=== PATIENT | female | born 1995 | race Caucasian/White ===

== ENCOUNTER 2020-03-17 06:51 | Outpatient (NON) | payer OTHER, SELFPAY ==
[2020-03-17 18:47] LABS: SARS-CoV-2 RNA PCR Negative
== END 2020-03-17 06:52 ==
DX: Z01.812 Encounter for preprocedural laboratory examination (principal); Z20.822 Contact with and (suspected) exposure to COVID-19
CPT/HCPCS: C9803; U0003; U0005

== ENCOUNTER → 2021-03-15 16:18 | Outpatient (CLI) | payer BC, SELFPAY ==
--- NOTE | ~2021-03-15 | XR_ITS ---
XR chest 2V DATE: 03/15/2021 16:46 INDICATION: Pleuritic chest pain. Covid-positive. TECHNIQUE: 2 views COMPARISON: 12/05/2013 2 view chest FINDINGS: Bilateral hyperinflation. No pulmonary infiltrate or consolidation, pleural effusion or pul monary vascular congestion or pneumothorax is detected. Normal heart size. No hilar or mediastinal en largement. Included skeletal structures are unremarkable. IMPRESSION: Bilateral hyperinflation Reviewed, dictated and finalized at location [facility] IMPRESSION: Bilateral hyperinflation
== END ==
DX: U07.1 COVID-19 (principal); R05.9 Cough, unspecified; R91.8 Other nonspecific abnormal finding of lung field
CPT/HCPCS: 71046

== ENCOUNTER 2021-12-18 09:59 | Emergency (ER) | payer BC, OTHER, SELFPAY ==
[2021-12-18 10:20] VITALS: BP 147/85; PULSE 103; RESP 16; TEMP 36.3; O2SAT 99
[2021-12-18 10:27] VITALS: BP 147/85; PULSE 103; RESP 16; TEMP 36.3; O2SAT 99
--- NOTE | 2021-12-18 10:29 | ED.URI ---
HPI - URI/Sore Throat General Chief Complaint: Upper Respiratory Infection Stated Complaint: sore throat Time Seen by Provider: 12/18/21 10:29 Source: patient, RN notes reviewed and old records reviewed Mode of arrival: ambulatory Limitations: no limitations History of Present Illness HPI Narrative: 26 year old female who presents to [facility] with complaints of sore throat, cough, chest congestion for one week duration. Patient reports no fevers, sinus congestion or drainage or any ear pain. Patient reports that she initially took Benadryl thinking it was allergies which didn't seem to help and she also has taken some DayQuil which didn't seem to help her symptoms either. She reports that she has been COVID vaccinated and has had COVID. Patient denies any body aches did take home COVID test which was negative. MD elicited complaint: sore throat Onset (ago): week(s) (1) Pain scale (0-10): 6 Treatments prior to arrival: other (Benadryl and Dayquil) Related Data Home Medications Medication Instructions Recorded Confirmed norethindrone 1 mg-ethinyl tablet 12/18/21 estradiol 20 mcg (21)-iron 75 mg (7) tablet (03/22 (28)) Allergies Allergy/AdvReac Type Severity Reaction Status Date / Time No Known Allergies Allergy Verified 12/18/21 10:07 Review of Systems Review of Systems: CONSTITUTIONAL: Denies malaise, chills, sweats, or fever. EYES: Denies visual changes, redness, or discharge. ENT: Reports no rhinorrhea, congestion, sinus pain, otalgia positive sore throat. CARDIOVASCULAR: Denies chest pain, palpitations, or edema. RESPIRATORY: Reports cough and feelings of chest congestion with no expectoration of mucus, Denies dyspnea. GASTROINTESTINAL: Denies abdominal pain, nausea, vomiting, diarrhea SKIN: Denies rash or itching. MUSCULOSKELETAL: Denies myalgia. NEUROLOGIC: Denies headache. All systems reviewed & are unremarkable except as noted in HPI and below PMFSH Surgical History Surgical History (Updated 12/19/21 @ 09:31 by Deja Fitzgerald NP) History of lumpectomy of right breast Social History Social History (Updated 12/19/21 @ 09:32 by Deja Fitzgerald NP) Smoking status: Never smoker Alcohol intake: current Alcohol use details: social Substance use: never Substance use type: does not use Living arrangements: with family Gender identity (if verbalized by the patient): Female Comments At time of signature, agree with nursing past medical, surgical, social and family history. There is no relevant family history pertinent to the presenting complaint Exam Narrative: GENERAL: Well-appearing, well-nourished, and in no acute distress. HEAD: Normocephalic EYES: PERRLA, conjunctivae clear ENT: Nares clear, turbinates edematous and erythematous, clear discharge. Mucous membranes moist. TM pearly jackson with dull light reflex bilaterally; no tragal tenderness. Oropharynx erythematous without lesions. Tonsils not enlarged and without exudate, no drooling, no hoarseness, no trismus, uvula midline, post nasal drainage noted. NECK: Supple. No lymphadenopathy CHEST: Clear to auscultation, breath sounds equal. No wheezing, rhonchi, rales, or stridor. No respiratory distress, speaks in full sentences.SAO2 99% on room air, some dry cough noted HEART: Regular rate and rhythm. No murmur heard. SKIN: Warm, dry, no rash. NEURO: Alert and oriented x3. PSYCH: Normal mood and affect Course Course Emergency Course: Patient is aware of diagnosis, understands and agrees to treatment plan.? Anticipatory guidance given.? Patient agrees to follow-up as directed and is aware of reasons to seek care at the emergency department. Portions of this record may have been created with voice recognition software Level of Care: Express Care Visit Vital Signs Vital signs: Vital Signs Temperature 36.3 C L 12/18/21 10:20 Pulse Rate 103 H 12/18/21 10:20 Respiratory Rate
== END 2021-12-18 10:55 | disposition home or self-care (01) ==
PROVIDERS: Emergency Provider Registered Nurse; PCP Registered Nurse
DX: J06.9 Acute upper respiratory infection, unspecified (principal); R05.9 Cough, unspecified
CPT/HCPCS: 87081; 87880; 99213; G0463

== ENCOUNTER 2022-01-17 22:07 | Emergency (ER) | payer BC, OTHER, SELFPAY ==
--- NOTE | ~2022-01-17 | XR_ITS ---
EXAMINATION: XR chest 2V DATE: 01/17/2022 22:38 INDICATION: Chest pain TECHNIQUE: PA and lateral views of the chest are obtained. COMPARISON: 03/15/2021 FINDINGS: The lungs are free of acute opacities. No pleural effusion or pneumothorax. The cardiomedia stinal silhouette is normal. The visualized bones and soft tissues are unremarkable. IMPRESSION: 1. No acute cardiopulmonary abnormality. Reviewed, dictated and finalized at location [facility]
--- NOTE | 2022-01-17 22:13 | ECG_ITS ---
Measurements Intervals [place] Rate: 84 P: 61 NE: 112 QRS: 53 QRSD: 86 T: 23 QT: 374 QTc: 444 Interpretive Statements SINUS RHYTHM WITH SHORT NE INTERVAL NONSPECIFIC T-WAVE ABNORMALITY- ANT/INF LEADS BORDERLINE ECG NO PREVIOUS ECG AVAILABLE FOR COMPARISON Electronically Signed On 01-18-2022 6:32:35 [employer] by Keegan Patiño D.O.
[2022-01-17 22:22] VITALS: BP 150/82; PULSE 78; RESP 14; TEMP 37.3; O2SAT 100
[2022-01-17 22:43] LABS: Basophils Absolute Auto 0.1 K/mm3 (0.0-0.1); Basophils Percent Auto 1.2 % (0.2-1.2); Eosinophils Absolute Auto 0.1 K/mm3 (0-0.3); Eosinophils Percent Auto 2.1 % (0-4.4); Hematocrit 47.6 % (37.0-47.0); Hemoglobin 15.2 g/dL (12.0-15.0); Immature Granulocyte Absolute 0.02 K/mm3 (0.00-0.031); Immature Granulocyte Percent A 0.3 % (0-0.5); Lymphocytes Absolute Auto 3.19 K/mm3 (0.9-3.2); Lymphocytes Percent Auto 54.8 % (18.3-44.2); Mean Corpuscular HGB Conc 31.9 g/dl (32-36); Mean Corpuscular Hemoglobin 30.6 pg (26-34); Mean Corpuscular Volume 95.8 fl (80-100); Mean Platelet Volume 9.2 fl (7.4-10.4); Monocytes Absolute Auto 0.4 K/mm3 (0.1-0.6); Monocytes Percent Auto 6.7 % (2.6-8.5); Neutrophils Percent Auto 34.9 % (45.5-73.1); Platelet Count Result 315 k/mm3 (150-375); Red Blood Count 4.97 M/mm3 (4.2-5.4); Red Cell Distribution Width 12.3 % (11.5-14.5); White Blood Count 5.8 K/mm3 (4.5-10.0)
[2022-01-17 22:54] LABS: Alanine Aminotransferase 27 U/L (6-35); Albumin Level 4.8 g/dL (3.5-5.1); Alkaline Phosphatase 73 U/L (38-126); Anion Gap 15 mmol/L (8-16); Aspartate Amino Transferase 31 U/L (14-36); Bilirubin,Total 0.5 mg/dL (0.2-1.3); Blood Urea Nitrogen 12 mg/dL (7-17); Calcium 9.6 mg/dL (8.4-10.2); Carbon Dioxide 21 mmol/L (22-30); Chloride 107 mmol/L (98-107); Estimated Glomerular Filt Rate > 60; Glucose 94 mg/dL (65-110); Lipase 174 U/L (23-300); Potassium 3.7 mmol/L (3.4-5.0); Sodium 143 mmol/L (137-145)
[2022-01-17 23:05] LABS: Troponin I < 0.012 ng/mL (0.000-0.034)
[2022-01-18 00:34] VITALS: BP 135/83; PULSE 71; RESP 18; TEMP 36.9; O2SAT 100
[2022-01-18 00:35] VITALS: O2SAT 100
[2022-01-18 00:36] VITALS: PULSE 72
--- NOTE | 2022-01-18 00:37 | ED.GENADULT ---
HPI - General Adult General Chief complaint: Chest Pain Stated complaint: chest pain, light headed Time Seen by Provider: 01/18/22 00:12 History of Present Illness HPI narrative: Patient is a 27-year-old female who presents to Emergency Department with a chief complaint of chest pain and lightheadedness. Patient reports she was at a game and had an episode where she felt as though her heart was beating fast and had some tightness in her chest. Patient states she also felt lightheaded during this episode patient states symptoms have mostly resolved now but still has some discomfort they states it was similar whenever she was diagnosed pleurisy in the past. Patient denies fever denies trauma reports that she has no prior history of clotting disorder no prior history of connective tissue disorder. Related Data Home Medications Medication Instructions Recorded Confirmed norethindrone 1 mg-ethinyl tablet 12/18/21 estradiol 20 mcg (21)-iron 75 mg (7) tablet (03/22 (28)) Allergies Allergy/AdvReac Type Severity Reaction Status Date / Time No Known Allergies Allergy Verified 12/18/21 10:07 Review of Systems Review of Systems: A 10 system review of systems was completed on the patient and is negative except for what is stated in the HPI. Nursing and ancillary documentation was reviewed. [facility] Surgical History Surgical History History of lumpectomy of right breast Social History Social History Smoking status: Never smoker Alcohol intake: current Alcohol use details: social Substance use: never Substance use type: does not use Gender identity (if verbalized by the patient): Female Exam Narrative: GENERAL: Well-appearing, well-nourished, and in no acute distress. HEAD: Normocephalic, atraumatic. EYES: PERRLA and EOMI. ENT: Nares clear, no rhinorrhea or epistaxis. Mucous membranes moist. NECK: Supple. CHEST: Clear to auscultation. No respiratory distress. HEART: Regular rate and rhythm. No murmur heard. Normal peripheral pulses. ABDOMEN: Soft, nontender, nondistended, normal active bowel sounds. EXTREMITIES: Normal range of motion. No edema. SKIN: Warm, dry, no rash. NEURO: No focal deficits. Alert and oriented x3. PSYCH: Normal mood and affect. Course Course Emergency Course: EKG is sinus rhythm rate of [address] elevation or ST depression Vital Signs Vital signs: Vital Signs Temperature 37.3 C 01/17/22 22:22 Pulse Rate 78 01/17/22 22:22 Respiratory Rate 14 01/17/22 22:22 Blood Pressure 150/82 H 01/17/22 22:22 Pulse Oximetry 100 01/17/22 22:22 Oxygen Delivery Room Air 01/17/22 22:22 Temperature 36.9 C 01/18/22 00:34 Pulse Rate 76 01/18/22 00:43 Respiratory Rate 18 01/18/22 00:43 Blood Pressure 132/82 01/18/22 00:43 Pulse Oximetry 98 01/18/22 00:43 Oxygen Delivery Room Air 01/18/22 00:35 Medical Decision Making Vital Signs Vital Signs: Vital Signs Temperature 37.3 C 01/17/22 22:22 Pulse Rate 78 01/17/22 22:22 Respiratory Rate 14 01/17/22 22:22 Blood Pressure 150/82 H 01/17/22 22:22 Pulse Oximetry 100 01/17/22 22:22 Oxygen Delivery Room Air 01/17/22 22:22 Temperature 36.9 C 01/18/22 00:34 Pulse Rate 76 01/18/22 00:43 Respiratory Rate 18 01/18/22 00:43 Blood Pressure 132/82 01/18/22 00:43 Pulse Oximetry 98 01/18/22 00:43 Oxygen Delivery Room Air 01/18/22 00:35 Lab Data Result diagrams: 01/17/22 22:30 01/17/22 22:30 Labs: Lab Results 01/17/22 01/17/22 Range/Units 22:30 22:30 WBC 5.8 (4.5-10.0) K/mm3 RBC 4.97 (4.2-5.4) M/mm3 Hgb 15.2 H (12.0-15.0) g/dL Hct 47.6 H (37.0-47.0) % MCV 95.8 (80-100) fl MCH 30.6 (26-34) pg MCHC 31.9 L (32-36) g/dl RDW 12.3 (11.5-14.5) % Plt Count 315 (
[2022-01-18 00:43] VITALS: BP 132/82; PULSE 76; RESP 18; O2SAT 98
[2022-01-18] MEDS: SODIUM CHLORIDE 0.9% IV 1,000 ML 999 ML IV CONT (00:48)
--- NOTE | 2022-01-23 19:11 | PC.NURSE ---
fluids stopped 1h after started.
== END 2022-01-18 01:30 | disposition home or self-care (01) ==
PROVIDERS: Emergency Provider Emergency Medicine; PCP Registered Nurse
DX: R07.9 Chest pain, unspecified (principal); R00.2 Palpitations; R94.31 Abnormal electrocardiogram [ECG] [EKG]
CPT/HCPCS: 36415; 71046; 80053; 83690; 84484; 85025; 93005; 96360; 99284; J7030